=== PATIENT | male | born 1995 | race Two or more races ===

== ENCOUNTER 2018-02-22 23:03 | Emergency (ER) | payer MEDICAID ==
[~2018-02-22] VITALS: Ht 167.6 cm; Wt 68.0 kg
[2018-02-22] MEDS ORDERED: IBUPROFEN600 MG ORAL (23:56)
--- NOTE | 2018-02-22 23:56 | Emergency Room Report ---
History of Present Illness General Chief Complaint: Pain Source: Patient Present Illness HPI This is a 22-year-old male who is right-hand dominant. He presents with left elbow pain. His been ongoing for last 3 days. Some stiffness to the elbow. No trauma. No fever chills. This occur right afterward. Denies any other complaint. Worse with certain motion. Worse with certain twisting motion. Allergies: Coded Allergies: No Known Allergies (Unverified , 02/22/18) Patient History Past Medical History: see triage record, old chart reviewed Past Surgical History: none Pertinent Family History: none Social History: Denies: smoking Immunizations: other Reviewed Nursing Documentation: PMH: Agreed; PSxH: Agreed Nursing Documentation-PMH Past Medical History: No Stated History Review of Systems Eye: Denies: eye pain, blurred vision ENT: Denies: ear pain, nose congestion, throat swelling Respiratory: Denies: cough, shortness of breath Cardiovascular: Denies: chest pain, palpitations Gastrointestinal: Denies: abdominal pain, diarrhea, nausea, vomiting Musculoskeletal: Reports: joint pain; Denies: back pain Skin: Denies: rash Neurological: Denies: headache, numbness Endocrine: Denies: increased thirst, increased urine Hematologic/Lymphatic: Denies: easy bruising All Other Systems: negative except mentioned in HPI Physical Exam Vital Signs Date Time Temp Pulse Resp B/P (MAP) Pulse Ox O2 Delivery O2 Flow Rate FiO2 02/22/18 23:06 98.4 85 18 110/68 96 98.4 vitals normal Sp02 EP Interpretation: reviewed, normal General Appearance: well appearing, no apparent distress, alert Head: normocephalic, atraumatic Eyes: bilateral eye PERRL, bilateral eye EOMI ENT: hearing grossly normal, normal pharynx Neck: full range of motion, supple, no meningismus Respiratory: chest non-tender, lungs clear, normal breath sounds Cardiovascular #1: regular rate, rhythm, no murmur Gastrointestinal: normal bowel sounds, non tender, no mass, no organomegaly, no bruit, non-distended Musculoskeletal: back normal, gait/station normal, normal range of motion Psychiatric: mood/affect normal Skin: warm/dry Procedures Splinting Splinting : Consent: Verbal Location: left elbow Pre-Made Type: sling Pre-Proc Neuro Vasc Exam: normal Post-Proc Neuro Vasc Exam: normal Patient Tolerated: Well Complications: None Medical Decision Making Diagnostic Impression: Primary Impression: Strain of elbow, left Qualified Codes: S56.912A - Strain of unspecified muscles, fascia and tendons at forearm level, left arm, initial encounter ER Course Patient with a left elbow strain. No fracture dislocation. No evidence of any septic joint. We'll discharge home. Other X-Ray Diagnostic Results Other X-Ray Diagnostic Results : X-Ray ordered: left elbow x-rays # of Views/Limited Vs Complete: 4 View Indication: Pain EP Interpretation: Yes Interpretation: no dislocation, no soft tissue swelling, no fractures Impression: No acute disease Electronically Signed by: Eduardo Pang MD Last Vital Signs Date Time Temp Pulse Resp B/P (MAP) Pulse Ox O2 Delivery O2 Flow Rate FiO2 02/22/18 23:06 98.4 85 18 110/68 96 98.4 Status: improved Disposition: HOME, SELF-CARE Condition: Stable Scripts Ibuprofen* (MOTRIN*) 600 Mg Tablet 600 MG ORAL THREE TIMES A DAY, #30 TAB 0 Refills Prov: EDUARDO PANG M.D. 02/22/18 Referrals: NOT CHOSEN MARY/,REFERRING (PCP) Additional Instructions: Follow-up with your doctor in 7 days. No heavy lifting. Return if worse. Ice pack to the area. EDUARDO PANG M.D. Feb 22, 2018 23:56
[2018-02-23] VITALS: BP 110/68
[2018-02-23 00:02] VITALS: BP 110/68
--- NOTE | 2018-02-23 09:00 | Diagnostic Imaging Report ---
Indications:Pain in left elbow for 2 days while working Technique: Three or 4 views of the left elbow Comparison: None Findings: No acute fractures. No dislocations. No evidence of joint effusion Impression: Negative
== END 2018-02-23 00:02 | disposition home or self-care (01) ==
LOC: EMR 23:43
DX: S56.912A Strain of unspecified muscles, fascia and tendons at forearm level, left arm, initial encounter (principal); X58.XXXA Exposure to other specified factors, initial encounter; Y93.9 Activity, unspecified; Y92.9 Unspecified place or not applicable
CPT/HCPCS: 99283

== ENCOUNTER 2018-12-23 22:59 | Emergency (ER) | payer MEDICAID ==
[~2018-12-23] VITALS: Ht 167.6 cm; Wt 63.5 kg
[~2018-12-23 22:59] MED LIST: IBUPROFEN600 MG ORAL
--- NOTE | 2018-12-23 23:15 | NUR ---
ED Nurse Note: pt walked in c/o pain in nostril area x 2-3days , noted small reddened yellow pustule in left nostril with tenderness, airway intact, will cont monitor.
[2018-12-23 23:26] VITALS: BP 125/87
--- NOTE | 2018-12-23 23:40 | Emergency Room Report ---
History of Present Illness General Chief Complaint: Skin Rash/Abscess Source: Patient Present Illness HPI Patient presents with a painful red area in an outside of his left nostril. He has not used any medication for it. He is also complaining about headache. He has a history of migraines. He denies any fevers or chills. There has been no drainage. No chest pain, palpitations, nausea, vomiting, diarrhea, dysuria, abdominal pain , shortness of breath, depression, visual changes. 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 Nursing Documentation: PMH: Agreed; PSxH: Agreed Review of Systems All Other Systems: negative except mentioned in HPI Physical Exam Vital Signs Date Time Temp Pulse Resp B/P (MAP) Pulse Ox O2 Delivery O2 Flow Rate FiO2 12/23/18 23:02 98.2 82 16 125/87 (100) 98 Room Air General Appearance: well appearing, no apparent distress Head: normocephalic, atraumatic Eyes: bilateral eye normal inspection, bilateral eye PERRL ENT: hearing grossly normal, normal pharynx, normal voice, other - red lesion inside of L nostril - not fluctuant Neck: full range of motion, supple Respiratory: no respiratory distress, speaking full sentences Musculoskeletal: no calf tenderness Neurologic: alert, oriented x3, normal gait, grossly normal Psychiatric: mood/affect normal Skin: other - see nose exam Medical Decision Making Diagnostic Impression: Primary Impression: Infected lesion in nose ER Course Patient presents with painful lesion on his left nose. Differential includes abscess, cellulitis amongst others. There is no fluctuance at this time. Antibiotics are indicated as well as analgesia. There is no evidence of cavernous sinus thrombosis at this time. Discussed treatment plan with patient. Patient stable for outpatient observation and treatment. Last Vital Signs Date Time Temp Pulse Resp B/P (MAP) Pulse Ox O2 Delivery O2 Flow Rate FiO2 12/24/18 00:03 98.2 74 16 121/74 98 Room Air Status: improved Disposition: HOME, SELF-CARE Condition: Improved Scripts Ibuprofen* (MOTRIN*) 600 Mg Tablet 600 MG ORAL Q6H PRN for For Pain, #16 TAB 0 Refills Prov: Ludwin Santiago MD 12/23/18 Bacitracin (Bacitracin) 28.4 Gm Oint...g. 1 APPLIC TOPIC BID, #10 GM Prov: Ludwin Santiago MD 12/23/18 Trimethoprim/Sulfamethoxazole 160/800* (BACTRIM DS TABLET*) 1 Each Tablet 1 TAB ORAL TWICE A DAY, #14 TAB Prov: Ludwin Santiago MD 12/23/18 Ludwin Santiago MD Dec 23, 2018 23:40
[2018-12-23] MEDS ORDERED: IBUPROFEN600 MG ORAL (23:43)
[2018-12-23] MEDS ORDERED: BACITRACIN15 GM TOPIC (23:43)
[2018-12-23] MEDS ORDERED: BACTRIM DS TAB1 EAC1 ORAL (23:43)
[2018-12-23] MEDS ORDERED: Bactrim-DS 1 tab ORAL ONE (23:45)
[2018-12-23] MEDS ORDERED: Bacitracin Oint UD TOPIC ONE (23:45)
--- NOTE | 2018-12-24 00:02 | NUR ---
ED Nurse Note: pt cleared to be d/c per eRMD, pt discharge and aftercare instruction provided w/ prescription, pt education done via discussion and handout, pt advised to follow up with pcp or return to ed if changes in condition, pt verbalized understanding and agrees with plan, vss, ambulatory w/ steady gait, left w/ all belongings, accompanied by girlfriend.
[2018-12-24 00:03] VITALS: BP 121/74
== END 2018-12-24 00:03 | disposition home or self-care (01) ==
LOC: EMR 23:50
DX: L98.9 Disorder of the skin and subcutaneous tissue, unspecified (principal); L08.9 Local infection of the skin and subcutaneous tissue, unspecified; F17.200 Nicotine dependence, unspecified, uncomplicated
CPT/HCPCS: 99282